=== PATIENT | female | born 1995 | race Caucasian/White ===

== ENCOUNTER 2019-04-30 12:19 | Outpatient (RCR) | payer BC, MEDICAID, SELFPAY | END 2019-07-29 23:59 | disposition home or self-care (01) | LOC: ANHLAB 12:19 | PROVIDERS: PCP Family Medicine; Visit Provider Advanced Practice Midwife | DX: O20.0 Threatened abortion (principal); Z3A.00 Weeks of gestation of pregnancy not specified | CPT/HCPCS: 36415; 84702 ==

== ENCOUNTER 2019-12-14 06:04 | Inpatient (IN) | payer BC, SELFPAY ==
[2019-12-14] VITALS (179 sets, daily range): BP systolic 69–166; BP diastolic 25–94; PULSE 68–150; RESP 18; TEMP 36.6–37.6; O2SAT 86–100; BMI 43.5
--- NOTE | 2019-12-14 06:34 | LDADM ---
This patient, Marcia Thapa, was admitted to Labor/Delivery/Recovery 107 on 12/14/19 at 06:04. Plans for labor, pain management and were discussed with patient. Patient/family oriented to hospital policies and general routines including ID bracelet, bed and alarms, visiting hours, pain management, procedures, bathroom and other care routines, personal items, smoking policy, room service/diet and guest tray routines, security routines, and visiting hours. Patient/Family are encouraged to report perceived risks to care and to ask questions if they do not understand what they are told or what they should do. See OBIX for further documentation.
[2019-12-14] MEDS: LACTATED RINGERS 1,000 ML 125 ML IV CONT ×2 (06:52→10:22)
[2019-12-14] MEDS: OXYTOCIN 30 UNITS/NS 500 ML 30 UNITS/500 ML BAG 6 UNITS IV CONT (06:53)
[2019-12-14 06:56] LABS: Basophils Absolute Auto 0.1 K/mm3 (0.0-0.1); Basophils Percent Auto 0.5 % (0.2-1.2); Eosinophils Absolute Auto 0.1 K/mm3 (0-0.3); Eosinophils Percent Auto 0.6 % (0-4.4); Hemoglobin 12.7 g/dL (12.0-15.0); Immature Granulocyte Absolute 0.17 K/mm3 (0.00-0.031); Immature Granulocyte Percent A 1.3 % (0-0.5); Lymphocytes Absolute Auto 2.42 K/mm3 (0.9-3.2); Lymphocytes Percent Auto 19.2 % (18.3-44.2); Mean Corpuscular HGB Conc 33.4 g/dl (32-36); Mean Corpuscular Hemoglobin 28.7 pg (26-34); Mean Corpuscular Volume 85.8 fl (80-100); Mean Platelet Volume 9.7 fl (7.4-10.4); Monocytes Absolute Auto 0.8 K/mm3 (0.1-0.6); Monocytes Percent Auto 6.4 % (2.6-8.5); Neutrophils Absolute Auto 9.1 K/mm3 (1.3-6.7); Platelet Count Result 290 k/mm3 (150-375); Red Blood Count 4.43 M/mm3 (4.2-5.4); White Blood Count 12.6 K/mm3 (4.5-10.0)
--- NOTE | 2019-12-14 08:36 | WPDANESEPPF ---
Anes - Initial Pre Proc Eval Procedure: Labor Epidural Date/Time: 12/14/19 08:36 Surgeon: Charles Wang MD Pre Op Diagnosis: Induction of Labor Patient Data Age: 24 Gender: F Height: 1.73 m Weight: 130 kg Last Vital Signs Pulse 78 12/14/19 08:31 BP 115/71 12/14/19 08:31 Allergies Allergy/AdvReac Type Severity Reaction Status Date / Time No Known Allergies Allergy Unverified 07/23/18 23:15 Home Medications Medication Instructions Recorded Confirmed Type PNV cmb#95-ferrous fumarate-FA 1 tablet PO DAILY 12/09/19 12/14/19 History [] alprazolam [Xanax] 0.25 mg PO TID PRN 12/09/19 12/14/19 History Laboratory Tests 12/14/19 12/14/19 12/14/19 06:30 06:30 06:30 WBC 12.6 K/mm3 H K/mm3 (4.5-10.0) RBC 4.43 M/mm3 M/mm3 (4.2-5.4) Hgb 12.7 g/dL g/dL (12.0-15.0) Hct 38.0 % % (37.0-47.0) MCV 85.8 fl fl (80-100) MCH 28.7 pg pg (26-34) MCHC 33.4 g/dl g/dl (32-36) RDW 15.0 % H % (11.5-14.5) Plt Count 290 k/mm3 k/mm3 (150-375) MPV 9.7 fl fl (7.4-10.4) Immature Gran % (Auto) 1.3 % H % (0-0.5) Neut % (Auto) 72.0 % % (45.5-73.1) Lymph % (Auto) 19.2 % % (18.3-44.2) Edgar % (Auto) 6.4 % % (2.6-8.5) Eos % (Auto) 0.6 % % (0-4.4) Baso % (Auto) 0.5 % % (0.2-1.2) Lymph # (Auto) 2.42 K/mm3 K/mm3 (0.9-3.2) Edgar # (Auto) 0.8 K/mm3 H K/mm3 (0.1-0.6) Eos # (Auto) 0.1 K/mm3 K/mm3 (0-0.3) Baso # (Auto) 0.1 K/mm3 K/mm3 (0.0-0.1) Abs Immat Gran (auto) 0.17 K/mm3 H K/mm3 (0.00-0.031) Absolute Neuts (auto) 9.1 K/mm3 H K/mm3 (1.3-6.7) Absolute Nucleated RBC 0.0 K/mm3 K/mm3 (0.0-0.012) Nucleated RBC % 0.0 % % (0.0-0.2) RPR Pending Blood Type B Positive Antibody Screen Negative Patient hx anesthesia problems: none Family hx anesthesia problems: none PMFSH Family History Family History Grandparent Family history of malignant neoplasm of urinary bladder Diabetes mellitus Social History Social History Smoking status: Current every day smoker Tobacco type: cigarettes Alcohol intake: current Substance use: former Gender identity (if verbalized by the patient): Female Spiritual care concerns: No Anes - Eval Final PreProcedure Day of Procedure 12/14/19 08:36 Patient weight: morbidly obese Heart: regular rate and rhythm Lungs: normal air movement Airway: Mallampati scale class III Neurological: alert and oriented ASA classification: III Emergent: no Anesthetic plan: proceed Anesthesia type and monitoring: regional epidural Informed Consent: The patient's anesthetic plan and its attendant risks and benefits were discussed with the patient/family/POA. Questions were solicited and answers provided to the satisfaction of the patient/family/POA.
--- NOTE | 2019-12-14 09:53 | WPDOBADMIT ---
Obstetrics - Admit Note Admission Note: 24 y/o @ 39w2d here for elective induction of labor. Cervix 2-3cm AROM moderate amount of clear odorless fluid Anticipate record reviewed. No pertinent additions to the history and/or any subsequent changes in the physical findings that are not consistent with the expected course of the were found. Additions to the history and/or subsequent changes in the physical findings follow. None.
[2019-12-14] MEDS: WATER, STERILE FOR INJECTION 10 ML VIAL XX (10:36)
--- NOTE | 2019-12-14 19:16 | P.PCNOB_ITS ---
OB - Delivery Note Procedure Delivery date: 12/14/19 Induction method: per pitocin protocol Delivery monitor: internal FHT and internal uterine Route of delivery: Laceration description: Perineal - 2nd Degree Delivery repair: vicryl Estimated blood loss (mL): 236 Anesthesia type: Epidural [place] Baby Date of : 12/14/19 Time of : 18:45 Weeks of gestation at delivery: 39 Weight (pounds): 7 Weight (ounces): 10 presentation: vertex position: Right Occiput Anterior Placenta delivery description: Spontaneous score one minute: 8 score five minutes: 9 Narrative: Mother and baby in stable condition. Cord clamped at 2 minutes. Gases collected and handed off to staff.
[2019-12-14] MEDS: OXYTOCIN 30 UNITS/NS 500 ML 30 UNITS/500 ML BAG 125 UNITS IV CONT (19:24)
[2019-12-14] MEDS: IBUPROFEN 600 MG TABLET PO (20:21)
[2019-12-14] MEDS: WITCH HAZEL 40 PADS 1 PAD TOPICAL (20:21)
[2019-12-14] MEDS: BENZOCAINE 20% AER SPR (*SP) 56 GM CAN 1 SPRAY TOPICAL (20:22)
--- NOTE | 2019-12-14 23:18 | PC.NURSE ---
Addendum entered by Petra Smith RN 12/14/19 23:22: Mother in wheelchair also accompanied baby to second floor OB. Safety and security measures for baby were also discussed. Parents state understanding. Original Note: 12/14/2019 at 2222. Baby in crib brought to second floor OB and taken to mother's room 284. Mother and patient's own mother (significant other not involved) oriented to room, surroundings, and plan of care for baby and mother. Patient states understanding.l
[2019-12-15 04:14] LABS: Hematocrit 33.9 % (37.0-47.0); Hemoglobin 11.1 g/dL (12.0-15.0)
--- NOTE | 2019-12-15 08:30 | PC.NURSE ---
PT introductions made and plan of care discussed per post , pain management, bottle feeding, support person, daily care activities. PT verbalized understanding of such care.
[2019-12-15 09:00] VITALS: BP 133/76; PULSE 100; RESP 18; TEMP 37.7; O2SAT 100
[2019-12-15] MEDS: DOCUSATE SODIUM 100 MG CAPSULE PO ×2 (09:02→17:28)
[2019-12-15] MEDS: IBUPROFEN 600 MG TABLET PO ×2 (09:02→17:27)
--- NOTE | 2019-12-15 09:45 | WPDANLDPN2 ---
Anes-Prog Note L&D Date/Time: 12/15/19 09:45 Comfortable throughout: labor and delivery Neuraxial method: epidural Epidural/Spinal procedure site: clean & non-tender Neuro status: Neuro function grossly intact. Cardiovascular status: normal Respiratory status: normal Airway patency: baseline Mental status: baseline Post-Op hydration status: normal Vital Signs: Last Vital Signs Temp 37.6 C 12/14/19 22:25 Pulse 101 H 12/14/19 22:25 Resp 18 12/14/19 22:25 BP 126/75 12/14/19 22:25 Pulse Ox 99 12/14/19 22:25 Pain score (VAS): 0/10. Patient resting up to bedside at time of assessment, appears comfortable. I/O: Intake & Output 12/14/19 12/15/19 12/15/19 23:59 07:59 15:59 Intake Total 500 Output Total 113 Balance 387 Post-procedural complaints: none Patient feedback: Patient satisfied with anesthetic care.
--- NOTE | 2019-12-15 14:39 | PM.OBPNVD ---
OB - PN: Subj Subjective Date/time seen: 12/15/19 14:39 OB - PN: Obj Data Labs CBC & Chem 7: 12/15/19 03:59 Labs: Laboratory Results - last 24 hr 12/15/19 03:59 Hgb 11.1 L Hct 33.9 L OB - PN A/P Plan day: 1 Plan: routine care Time Spent With Patient Time: Total time spent is greater than 50% in coordination of care (as documented) at patient's floor/unit and/or counseling patient: Time with patient: less than 15 minutes Review of Systems Review of Systems: All systems reviewed & are unremarkable except as noted in HPI and below Exam Const: General: comfortable Chest: Breast/axilla inspection: normal inspection of the breasts Resp: Effort & Inspection: normal respiratory effort Cardio: Rate: regular rate GI: Auscultation: normal bowel sounds Psych: Appearance: grossly normal Affect: normal affect Attitude: cooperative Judgement: Good judgement present (Psych)
--- NOTE | 2019-12-16 06:01 | PC.NURSE ---
2229 on December 15, 2019. Patient viewed the discharge video Mother & Baby Care, The First Two Weeks . Patient was given the opportunity and encouraged to ask questions. Patient verbalized understanding of information shared and has been given the mother/baby guide for home reference.
--- NOTE | 2019-12-16 07:37 | PM.OBPNVD ---
OB - PN: Subj Subjective Date/time seen: 12/16/19 07:37 Patient comments: no complaints, pain well controlled and tolerating diet OB - PN: Obj Data Labs CBC & Chem 7: 12/15/19 03:59 OB - PN A/P Plan day: 2 Plan: routine care and discharge home Time Spent With Patient Time: Total time spent is greater than 50% in coordination of care (as documented) at patient's floor/unit and/or counseling patient: Exam Const: General: comfortable and no acute distress Resp: Effort & Inspection: normal respiratory effort Auscultation: no rales, no rhonchi and no wheezes Cardio: Rate: regular rate Heart sounds: no click, no murmurs and no rubs GI: GI Palp: Yes Soft to palpation and No Tenderness to palpation present (GI) Auscultation: normal bowel sounds Extrem: General: normal to inspection, no pedal edema and no calf tenderness
--- NOTE | 2019-12-16 07:39 | PM.DS ---
DS: Discharge Diagnosis Discharge Diagnosis (1) Term delivered: Code(s): O80 - Encounter for full-term uncomplicated delivery Status: Acute DS: Summary Status at Discharge Functional status at discharge: independent ambulation Time Spent with Patient Time attestation: Total time spent providing and/or coordinating discharge services: Time spent: Less than 30 minutes Discharge Plan Discharge Discharging Clinician: Charles Wang Patient Disposition: Home, Self-Care Activity: pelvic rest Diet: regular Patient Instructions: Antibiotic Form, How to Stop Smoking (GEN), Cigarette Smoking and Your Health (GEN), Secondhand Smoke Exposure in Children (GEN) Stand Alone Forms: General Discharge Information Follow-up/Referrals: Charles Wang MD [Physician] - Discharge Medications: Continued alprazolam [Xanax] 0.25 mg Tablet 0.25 mg PO TID PRN (Reason: Anxiety) RF: 0 PNV cmb#95-ferrous fumarate-FA [] 28 mg iron- 800 mcg Tablet 1 tablet PO DAILY RF: 0 Date of admission: 12/14/19 06:04 Primary Care Provider: Pawel Hernandez Admitting Provider: Charles Wang Attending physician on admission: Charles Wang
[2019-12-16 07:55] VITALS: BP 105/56; PULSE 87; RESP 16; TEMP 37.1; O2SAT 100
[2019-12-16 13:33] LABS: Rapid Plasma Reagin Non-Reactive (NonReactive)
[2019-12-18 11:00] VITALS: BP 115/73; PULSE 75; RESP 20; TEMP 37.2; O2SAT 100
== END 2019-12-16 10:15 | disposition home or self-care (01) | DRG 807 ==
LOC: ANHLDR 15:11 → ANHOB2 22:58
PROVIDERS: Advanced Practice Midwife; Admitting Provider Obstetrics & Gynecology; PCP Family Medicine; Visit Provider Obstetrics & Gynecology
DX: O99.334 Smoking (tobacco) complicating childbirth (principal); Z37.0 Single live birth; Z3A.39 39 weeks gestation of pregnancy; F17.210 Nicotine dependence, cigarettes, uncomplicated; O99.214 Obesity complicating childbirth; E66.01 Morbid (severe) obesity due to excess calories; O70.1 Second degree perineal laceration during delivery; O99.344 Other mental disorders complicating childbirth; F41.9 Anxiety disorder, unspecified
CPT/HCPCS: 36415; 85014; 85018; 85025; 86592; 86850; 86900; 86901; A9270; J2370; J2590; J2795; J3010; J7120

== ENCOUNTER 2020-09-01 11:14 | Emergency (ER) | payer BC, SELFPAY ==
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
[2020-09-01 11:19] VITALS: BP 147/98; PULSE 106; RESP 18; TEMP 37.2; O2SAT 100
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
[2020-09-01] MEDS: TETANUS,DIPHTHERIA,AC PERTUSSIS ADULT (0.5 ML) BOOSTRIX IM (12:01)
[2020-09-01 13:16] VITALS: BP 129/83; PULSE 76; RESP 16
== END 2020-09-01 13:17 | disposition home or self-care (01) ==
PROVIDERS: Emergency Provider Emergency Medicine; PCP Family Medicine
DX: S20.211A Contusion of right front wall of thorax, initial encounter (principal); S00.03XA Contusion of scalp, initial encounter; E66.01 Morbid (severe) obesity due to excess calories; Z68.39 Body mass index [BMI] 39.0-39.9, adult; F17.210 Nicotine dependence, cigarettes, uncomplicated; Z23 Encounter for immunization; V86.55XA Driver of 3- or 4- wheeled all-terrain vehicle (ATV) injured in nontraffic accident, initial encounter
CPT/HCPCS: 70450; 71101; 90471; 90715; 99284

== ENCOUNTER 2020-10-09 16:49 | Emergency (ER) | payer BC, SELFPAY ==
--- NOTE | 2020-10-09 17:47 | PC.NURSE ---
must leave to mushroom pick[employer] children
== END 2020-10-09 17:47 | disposition left against medical advice (07) ==
PROVIDERS: PCP Family Medicine
DX: Z53.21 Procedure and treatment not carried out due to patient leaving prior to being seen by health care provider (principal)
CPT/HCPCS: 99199

== ENCOUNTER 2023-06-18 11:29 | Emergency (ER) | payer OTHER, SELFPAY ==
--- NOTE | ~2023-06-18 | XR_ITS ---
EXAMINATION: XR chest 2V DATE: 06/18/2023 12:00 INDICATION: Shortness of breath. Cough. TECHNIQUE: Frontal and lateral views of the chest were obtained. COMPARISON: None. FINDINGS: There is no pneumonia, pleural effusion, or pneumothorax. The heart size is normal. IMPRESSION: 1. No acute cardiopulmonary disease. Reviewed, dictated and finalized at location A. ER
--- NOTE | 2023-06-18 11:31 | ECG_ITS ---
Measurements Intervals [place] Rate: 94 P: 48 [place]: 162 QRS: 20 QRSD: 90 T: 7 QT: 339 QTc: 424 Interpretive Statements SINUS RHYTHM NO PREVIOUS ECG AVAILABLE FOR COMPARISON Electronically Signed On 06-18-2023 15:14:06 C[facility] by Aidan Hernández M.D.
[2023-06-18 11:49] VITALS: BP 132/89; PULSE 97; RESP 20; TEMP 36.6; O2SAT 100
[2023-06-18 11:52] LABS: Basophils Percent Auto 0.4 % (0.2-1.2); Eosinophils Absolute Auto 0.1 K/mm3 (0-0.3); Eosinophils Percent Auto 0.6 % (0-4.4); Hematocrit 45.1 % (37.0-47.0); Hemoglobin 14.3 g/dL (12.0-15.0); Immature Granulocyte Absolute 0.03 K/mm3 (0.00-0.031); Immature Granulocyte Percent A 0.3 % (0-0.5); Mean Corpuscular HGB Conc 31.7 g/dl (32-36); Mean Corpuscular Hemoglobin 27.9 pg (26-34); Mean Corpuscular Volume 88.1 fl (80-100); Mean Platelet Volume 9.9 fl (7.4-10.4); Monocytes Absolute Auto 0.5 K/mm3 (0.1-0.6); Neutrophils Absolute Auto 6.8 K/mm3 (1.3-6.7); Neutrophils Percent Auto 71.7 % (45.5-73.1); Platelet Count Result 254 k/mm3 (150-375); Red Blood Count 5.12 M/mm3 (4.2-5.4); Red Cell Distribution Width 14.4 % (11.5-14.5); White Blood Count 9.5 K/mm3 (4.5-10.0)
[2023-06-18 12:02] LABS: Alanine Aminotransferase 79 U/L (6-35); Albumin Level 4.4 g/dL (3.5-5.1); Alkaline Phosphatase 87 U/L (38-126); Anion Gap 8 mmol/L (8-16); Aspartate Amino Transferase 38 U/L (14-36); Bilirubin,Total 0.6 mg/dL (0.2-1.3); Blood Urea Nitrogen 7 mg/dL (7-17); Calcium 9.8 mg/dL (8.4-10.2); Carbon Dioxide 20 mmol/L (22-30); Chloride 109 mmol/L (98-107); Estimated CRCL calculation 166 ml/min; Estimated Glomerular Filt Rate > 60; Glucose 129 mg/dL (65-110); Potassium 3.8 mmol/L (3.4-5.0); Sodium 137 mmol/L (137-145)
--- NOTE | 2023-06-18 14:24 | ED.SOB ---
HPI - SOB/Dyspnea General Chief Complaint: Shortness of Breath/Dyspnea Stated Complaint: SOB, chest pressure Time Seen by Provider: 06/18/23 13:45 History of Present Illness HPI Narrative: Patient is a 28-year-old female presenting with URI symptoms. Patient states that for the last 8 days she has had a persistent cough that is especially bad at night. States that she has gone through multiple bottles of DayQuil, NyQuil, Mucinex with minimal relief. States that she can hear rattling in her chest at night and she often coughs all night long. States that she has been feeling somewhat short of breath. No chest pain, fevers, leg swelling, diarrhea. States that she had a couple episodes of emesis a few days ago. Related Data Allergies Allergy/AdvReac Type Severity Reaction Status Date / Time No Known Allergies Allergy Verified 06/18/23 13:29 Review of Systems Review of Systems: All systems reviewed & are unremarkable except as noted in HPI and below PMFSH Past Medical History Medical History Anemia Apnea BMI 38.0-38.9,adult BMI 39.0-39.9,adult BMI greater than 40 Jenise Morbid (severe) obesity due to excess calories Post depression Tobacco abuse Family History Family History Grandparent Family history of malignant neoplasm of urinary bladder Diabetes mellitus Father Episode of syncope Diabetes mellitus Hypertension Mother Morbid obesity H/O gastric bypass Sibling No problems noted. Social History Social History Smoking packs per day: 0.5 Smoking cigarettes per day: 10.0 Years smoked: 5 Smoking pack-years: 2.50 Smoking status: Current every day smoker (1 pack every 2 weeks) Tobacco type: cigarettes Second hand tobacco smoke exposure: No Alcohol intake: current Alcohol use details: She has quit drinking Substance use: current Substance use type: marijuana Other substance usage details: smokes Lack of Transportation: No Lack of Food: Never True Current Housing: I Have Housing Concerned About Future Housing: No Difficulty Paying Gas/Electric Bills: No Difficulty Paying for Meds: No Currently Unemployed: No Education: High School Diploma/GED Difficulty w/ Childcare or Family Care: No Living arrangements: with family Additional living arrangements comments: parents Occupation/Education: occupation Additional occupation/education comments: [employer]. Gender identity (if verbalized by the patient): Female Sexual Orientation (if Verbalized by the Patient): Straight or Heterosexual Spiritual care concerns: No Agree to blood products: Yes Exam Narrative: GENERAL: Well-appearing, No acute distress, pleasant cooperative HEAD: Normocephalic, atraumatic. EYES: PERRLA and EOMI. ENT: Mucous membranes moist. no pharyngeal erythema or exudates NECK: Supple. CHEST: No respiratory distress. scattered wheezing bilateral bases HEART: Regular rate and rhythm ABDOMEN: Soft, nontender, nondistended EXTREMITIES: Normal range of motion. No edema. SKIN: Warm, dry, no rash. NEURO: No focal deficits. Alert and oriented x3. PSYCH: Normal mood and affect. Course Vital Signs Vital signs: Vital Signs Temperature 97.9 F 06/18/23 11:49 Pulse Rate 97 06/18/23 11:49 Respiratory Rate 20 06/18/23 11:49 Blood Pressure 132/89 06/18/23 11:49 Pulse Oximetry 100 06/18/23 11:49 Oxygen Delivery Room Air 06/18/23 11:49 Temperature 97.9 F 06/18/23 11:49 Pulse Rate 94 06/18/23 15:44 Respiratory Rate 20 06/18/23 15:44 Blood Pressure 130/88 06/18/23 15:44 Pulse Oximetry 100 06/18/23 15:44 Oxygen Delivery Room Air 06/18/23 13:29 MDM - SOB/Dyspnea MDM Narrative Medical decision making narrative: 28-year-old guille
[2023-06-18] MEDS: ALBUTEROL SULFATE (*SP) AEROSOL 1 PUFF 2 PUFF INHALATION (14:32)
[2023-06-18 14:34] LABS: Influenza A QL RT-PCR Negative (Negative); Influenza B QL RT-PCR Negative (Negative); RSV RNA, RT-PCR Negative (Negative); SARS-CoV-2 RNA PCR Negative (Negative)
[2023-06-18 15:44] VITALS: BP 130/88; PULSE 94; RESP 20; O2SAT 100
== END 2023-06-18 15:45 | disposition home or self-care (01) ==
PROVIDERS: Emergency Medicine; Emergency Provider Emergency Medicine; PCP Family Medicine
DX: B34.9 Viral infection, unspecified (principal); J06.9 Acute upper respiratory infection, unspecified; Z20.822 Contact with and (suspected) exposure to COVID-19; F17.210 Nicotine dependence, cigarettes, uncomplicated
CPT/HCPCS: 36415; 71046; 80053; 85025; 87637; 93005; 94664; 99284; A9270; J1100